=== PATIENT | male | born 1945 | race Caucasian/White ===

== ENCOUNTER 2019-06-08 10:42 | Observation (INO) | payer MEDICARE, BC ==
[2019-06-05 12:25] LABS: BASOPHILS # (AUTO) 0.1 X10'3 (0-0.2); BASOPHILS % (AUTO) 1.3 % (0-1); EOSINOPHILS # (AUTO) 0.1 X10'3 (0-0.9); EOSINOPHILS % (AUTO) 1.7 % (0-6); LYMPHOCYTES # (AUTO) 1.2 X10'3 (1.1-4.8); LYMPHOCYTES % (AUTO) 30.8 % (21-51); MEAN CORPUSCULAR HEMOGLOBIN 30.7 PG (27.0-31.0); MEAN CORPUSCULAR HGB CONC 33.8 g/dL (33.0-36.5); MEAN PLATELET VOLUME 7.6 FL (7.4-10.4); MONOCYTES # (AUTO) 0.4 X10'3 (0-0.9); MONOCYTES % (AUTO) 9.4 % (2-12); NEUTROPHILS # (AUTO) 2.3 X10'3 (1.8-7.7); NEUTROPHILS % (AUTO) 56.8 % (42-75); PRE OP HEMATOCRIT 41.7 % (42.0-52.0); PRE OP HEMOGLOBIN 14.1 g/dL (14.0-17.9); PRE OP PLATELET COUNT 205 X10'3 (140-440); RED BLOOD COUNT 4.58 X10'6 (4.70-6.10); RED CELL DISTRIBUTION WIDTH 13.1 % (11.5-14.5)
[2019-06-05 12:35] LABS: PRE OP INR 1.1 INR
[2019-06-05 12:37] LABS: ALBUMIN 3.7 G/DL (3.4-5.0); ALBUMIN/GLOBULIN RATIO 1.2 (1.1-1.5); ALKALINE PHOSPHATASE 69 IU/L (46-116); BLOOD UREA NITROGEN 17 MG/DL (7-18); BUN/CREATININE RATIO 18.7 (5.4-32.0); CALCIUM 8.9 MG/DL (8.5-10.1); CHLORIDE 108 MMOL/L (99-107); CREATININE 0.91 MG/DL (0.60-1.10); PRE OP ALT 33 U/L (30-65); PRE OP ANION GAP 1 (8-16); PRE OP AST 32 U/L (10-37); PRE OP BILIRUB, TOTAL 0.4 MG/DL (0.0-1.0); PRE OP GLUCOSE 99 MG/DL (70-104); PRE OP POTASSIUM 4.3 MMOL/L (3.4-5.1); PRE OP SODIUM 141 MMOL/L (135-145); TOTAL CARBON DIOXIDE 31.8 MMOL/L (24-32); TOTAL PROTEIN 6.8 G/DL (6.4-8.2); eGFR 82 ML/MIN
[~2019-06-08] VITALS: Ht 188 cm; Wt 88.5 kg
[2019-06-08] VITALS (19 sets, daily range): BP systolic 122–159; BP diastolic 61–85
[~2019-06-08 10:42] MED LIST: AMLO10TA PO; ASPI-611; ATOR40TA71 PO; LEVO200T8 PO; LOSA25TA96 PO; MULT-785 PO; OMEP40CA13 PO; cefazolin/dext.iso 2gm/100ml 100 ML IV ONE; famotidine 20mg tablet PO ONE; meperidine/PF 25mg/ml syringe IV PRN; morphine 2 MG/ML inj. syringe IV PRN; morphine 4 MG/ML inj SYRINge IV PRN; ondansetron/PF 4mg/2ml inj IV PRN; proCHLORperazine 10 MG/2 ml inj IV PRN; ringers solution, lacted 1,000 ML IV SCH
[2019-06-08] MEDS ORDERED: iohexol 300 MG/1 ML 10ml vial ONE (13:32)
[2019-06-08] MEDS ORDERED: neomy sulf/polymyxin B sulf. GU irrigation 1ml amp IR ONE (13:32)
[2019-06-08] MEDS ORDERED: fentaNYL/PF 50MCG/1 ML 2ML syringe ONE (13:40)
[2019-06-08] MEDS ORDERED: MIDAZolam 5mg/5ml vial ONE (13:40)
[2019-06-08] MEDS ORDERED: glycopyrrolate 0.2mg/ml inj ONE (15:32)
--- NOTE | 2019-06-08 15:45 | NUR ---
Received from OR via BED , accompanied by Anesthesiologist DR FRAGOSO and report given by Anesthesiolgist. PATIENT WAKING UP, DENIES PAIN, V/S WNL, NEUROVASCULAR CHECKLS INTACT, 20G PIV TO LUE, SCD ON, 3 WAY CONTINOUS BLADDER IRRIGATION WITH LIGHT CLEAR URINE NO CLOTS SEEN AT THIS TIME.
[2019-06-08] MEDS ORDERED: proCHLORperazine 10 MG/2 ml inj IV PRN (15:55)
[2019-06-08] MEDS ORDERED: mag hydrox/Alum hydrox/simeth 30ml oral suspension PO PRN (15:55)
[2019-06-08] MEDS ORDERED: zolpidem 5mg tablet PO PRN (15:55)
[2019-06-08] MEDS ORDERED: oxybutynin 5mg tablet PO PRN (15:55)
[2019-06-08] MEDS ORDERED: acetaminophen 325mg tablet PO PRN (15:55)
[2019-06-08] MEDS ORDERED: LIDOcaine 2% 10ml TOPICAL JELLY (Urojet) TP ONE (15:55)
[2019-06-08] MEDS ORDERED: HYDROcodone/acetaminophen 10/325mg tab PO PRN (15:55)
[2019-06-08] MEDS ORDERED: ondansetron/PF 4mg/2ml inj IV PRN (15:55)
[2019-06-08] MEDS: ceFAZolin inj. 1,000 MG in dextrose 5%-water 50ml 50 ML IV SCH (16:00)
--- NOTE | 2019-06-08 16:45 | NUR ---
PATIENT A&OX4, DENIES PAIN, V/S WNL, NEUROVASCULAR CHECKLS INTACT, 20G PIV TO LUE, SCD ON, 3 WAY CONTINOUS BLADDER IRRIGATION WITH LIGHT CLEAR URINE NO CLOTS SEEN AT THIS TIME. PATIENT TAKEN TO 349A WITH ALL BELONGINGS AND HOOKED UP TO MONITORS IN ROOM AND REPORT GIVEN TO TANK BUILDER AND ERECTOR WHO HAS TAKEN OVER PATIENT CARE.
--- NOTE | 2019-06-08 18:35 | NUR ---
Problems reprioritized. Patient report given, questions answered & plan of care reviewed with PAT RN.
--- NOTE | 2019-06-08 18:39 | NUR ---
PER DR PATTERSON DOSE OF ANCEF GIVEN IN OR. WILL NON ADMIN 1600 DOSE.
[2019-06-08] MEDS: potassium cl 20mEq in 1/2 NS 1,000 ML IV SCH ×2 (20:14→23:54)
[2019-06-08] MEDS: docusate sod 100mg capsule PO SCH (20:14)
[2019-06-09] VITALS: BP 142/82
[2019-06-09] MEDS: ceFAZolin inj. 1,000 MG in dextrose 5%-water 50ml 50 ML IV SCH ×2 (00:30→07:25)
[2019-06-09 04:30] VITALS: BP 141/75
[2019-06-09] MEDS: potassium cl 20mEq in 1/2 NS 1,000 ML IV SCH (05:18)
[2019-06-09 06:19] LABS: BASOPHILS % (AUTO) 0.6 % (0-1); EOSINOPHILS # (AUTO) 0.2 X10'3 (0-0.9); EOSINOPHILS % (AUTO) 2.5 % (0-6); HEMATOCRIT 40.8 % (42.0-52.0); LYMPHOCYTES # (AUTO) 1.3 X10'3 (1.1-4.8); LYMPHOCYTES % (AUTO) 18.5 % (21-51); MEAN CORPUSCULAR HGB CONC 34.4 g/dL (33.0-36.5); MEAN CORPUSCULAR VOLUME 90.1 FL (78-98); MEAN PLATELET VOLUME 7.8 FL (7.4-10.4); MONOCYTES # (AUTO) 0.5 X10'3 (0-0.9); MONOCYTES % (AUTO) 7.5 % (2-12); NEUTROPHILS # (AUTO) 4.8 X10'3 (1.8-7.7); NEUTROPHILS % (AUTO) 70.9 % (42-75); PLATELET COUNT 187 X10'3 (140-440); RED BLOOD COUNT 4.53 X10'6 (4.70-6.10); WHITE BLOOD COUNT 6.8 X10'3 (4.5-11.0)
[2019-06-09 06:24] LABS: ALBUMIN 3.2 G/DL (3.4-5.0); ANION GAP 3 (8-16); BLOOD UREA NITROGEN 8 MG/DL (7-18); BUN/CREATININE RATIO 9.9 (5.4-32.0); CALCIUM 8.8 MG/DL (8.5-10.1); CHLORIDE 108 MMOL/L (99-107); CREATININE 0.81 MG/DL (0.60-1.10); GLUCOSE 82 MG/DL (70-104); SODIUM 140 MMOL/L (135-145); TOTAL CARBON DIOXIDE 28.9 MMOL/L (24-32); eGFR > 90 ML/MIN
[2019-06-09] MEDS ORDERED: levoTHYROXINE 100mcg tablet PO SCH (07:00)
[2019-06-09 07:01] VITALS: BP 130/74
[2019-06-09] MEDS: docusate sod 100mg capsule PO SCH (07:25)
[2019-06-09] MEDS ORDERED: pantoprazole 40mg Tablet.DR PO SCH (07:30)
[2019-06-09] MEDS ORDERED: losartan 25mg tablet PO SCH (08:00)
[2019-06-09] MEDS ORDERED: amLODIPine 5mg tablet PO SCH (08:00)
[2019-06-09] MEDS ORDERED: non-formulary drug (Omeprazole (Prilosec) 1 CAP) PO SCH (08:00)
[2019-06-09] MEDS ORDERED: atorvastatin 20mg tablet PO SCH (08:00)
[2019-06-09] MEDS ORDERED: DOCU-148 PO (09:22)
--- NOTE | 2019-06-09 09:51 | NUR ---
PAUSED CBI PER MD ORDER
--- NOTE | 2019-06-09 13:43 | NUR ---
PT DISCHARGED IN STABLE CONDITION. LEFT FACILITY IN PRIVATE VEHICLE WITH . IV DC CANULA INTACT. ASHLEY CATH IN PLACE, EDUCATION GIVEN. FOLLOW UP INSTRUCTIONS GIVEN, ALL QUESTIONS ANSWERED. ALL BELONGINGS IN HAND. Addendum: 06/09/19 at 1344 by Alyse Morris RN Amended: Links added.
--- NOTE | 2019-06-13 12:48 | NUR ---
case management DC follow up: LM/VM post DC status, questions, concerns
== END 2019-06-09 11:49 | disposition home or self-care (01) ==
LOC: PAS IN 10:42 → INTOOBSV 10:42 → EDSTATUS 12:30 → SUR 3N 15:54
PROVIDERS: ADMIT Urology; ATTEND Urology
DX: N32.0 Bladder-neck obstruction (principal); N40.1 Benign prostatic hyperplasia with lower urinary tract symptoms; N21.0 Calculus in bladder; I25.10 Atherosclerotic heart disease of native coronary artery without angina pectoris; Z87.442 Personal history of urinary calculi; I51.9 Heart disease, unspecified; M19.90 Unspecified osteoarthritis, unspecified site; Z87.891 Personal history of nicotine dependence; Z79.899 Other long term (current) drug therapy
CPT/HCPCS: 36415; 52317; 52601; 80048; 80053; 82948; 85025; 85610; 85730; 86885; 86900; 86901; 96365; 96366; G0378; J0690; J2250; J3010; J7060; J7120; Q9967; 88300; 88305; A4355; A4402; A4615; A4618; J3480; J3490

== ENCOUNTER 2019-08-06 06:48 | Emergency (ER) | payer MEDICARE, BC ==
[~2019-08-06] VITALS: Ht 188 cm; Wt 91.8 kg
[~2019-08-06 06:48] MED LIST changes: -ASPI-611; +DOCU-148 PO; -MULT-785 PO; -cefazolin/dext.iso 2gm/100ml 100 ML IV ONE; -famotidine 20mg tablet PO ONE; -meperidine/PF 25mg/ml syringe IV PRN; -morphine 2 MG/ML inj. syringe IV PRN; -morphine 4 MG/ML inj SYRINge IV PRN; -ondansetron/PF 4mg/2ml inj IV PRN; -proCHLORperazine 10 MG/2 ml inj IV PRN; -ringers solution, lacted 1,000 ML IV SCH
[2019-08-06] MEDS ORDERED: LIDOcaine 2% 10ml TOPICAL JELLY (Urojet) MM ONE (07:35)
[2019-08-06] MEDS ORDERED: LIDOcaine 2% 10ml TOPICAL JELLY (Urojet) TP ONE (07:35)
[2019-08-06 07:50] LABS: CLARITY,URINE SLIGHTLY CLOUDY (Clear); COLOR,URINE STRAW (Yellow); GLUCOSE, URINE NEGATIVE (Neg); KETONES,URINE NEGATIVE (Neg); LEUKOCYTE ESTERASE ,URINE MODERATE (Neg); NITRITES, URINE NEGATIVE (Neg); OCCULT BLOOD,URINE TRACE-INTACT (Neg); PROTEIN,URINE NEGATIVE (Neg); UROBILINOGEN,URINE 0.2 E.U/dL (0.2-1.0)
[2019-08-06 07:58] LABS: UA COLLECTION TYPE VOIDED
[2019-08-06 07:59] LABS: RBC,URINE 0-2 /HPF (0-2); WBC,URINE 30-50 /HPF (0-4)
[2019-08-06 08:00] LABS: BACTERIA,URINE FEW /HPF (Neg); MUCUS STRANDS NONE SEEN /LPF (Neg); SQUAMOUS EPITHELIAL CELL,UR FEW /LPF (FEW)
[2019-08-06] MEDS ORDERED: cephalexin 250mg capsule PO ONE (08:05)
[2019-08-06] MEDS ORDERED: FLO0.4C PO (08:18)
[2019-08-06] MEDS ORDERED: CEPH500C5 PO (08:18)
[2019-08-06 08:46] VITALS: BP 148/84
== END 2019-08-06 08:47 | disposition home or self-care (01) ==
LOC: ER 06:49
DX: N39.0 Urinary tract infection, site not specified (principal); R33.9 Retention of urine, unspecified; I25.10 Atherosclerotic heart disease of native coronary artery without angina pectoris; Z72.89 Other problems related to lifestyle; Z98.61 Coronary angioplasty status; Z79.899 Other long term (current) drug therapy
CPT/HCPCS: 51702; 81001; 99284

== ENCOUNTER 2020-03-07 07:00 | Day surgery (SDC) | payer MEDICARE, BC ==
[2020-03-04 12:07] LABS: BASOPHILS % (AUTO) 0.9 % (0-1); EOSINOPHILS # (AUTO) 0.1 X10'3 (0-0.9); EOSINOPHILS % (AUTO) 2.3 % (0-6); LYMPHOCYTES # (AUTO) 1.6 X10'3 (1.1-4.8); LYMPHOCYTES % (AUTO) 31.7 % (21-51); MEAN CORPUSCULAR HEMOGLOBIN 31.5 PG (27.0-31.0); MEAN CORPUSCULAR HGB CONC 33.6 g/dL (33.0-36.5); MEAN CORPUSCULAR VOLUME 93.6 FL (78-98); MEAN PLATELET VOLUME 7.3 FL (7.4-10.4); MONOCYTES # (AUTO) 0.5 X10'3 (0-0.9); MONOCYTES % (AUTO) 9.2 % (2-12); NEUTROPHILS # (AUTO) 2.9 X10'3 (1.8-7.7); NEUTROPHILS % (AUTO) 55.9 % (42-75); PRE OP HEMATOCRIT 43.7 % (42.0-52.0); PRE OP HEMOGLOBIN 14.7 g/dL (14.0-17.9); PRE OP PLATELET COUNT 217 X10'3 (140-440); RED BLOOD COUNT 4.67 X10'6 (4.70-6.10); RED CELL DISTRIBUTION WIDTH 12.9 % (11.5-14.5)
[2020-03-04 12:31] LABS: ALBUMIN 3.8 G/DL (3.4-5.0); ALBUMIN/GLOBULIN RATIO 1.1 (1.1-1.5); ALKALINE PHOSPHATASE 67 IU/L (46-116); BLOOD UREA NITROGEN 18 MG/DL (7-18); BUN/CREATININE RATIO 20.2 (5.4-32.0); CALCIUM 8.9 MG/DL (8.5-10.1); CHLORIDE 107 MMOL/L (99-107); CREATININE 0.89 MG/DL (0.60-1.10); PRE OP ALT 34 U/L (30-65); PRE OP ANION GAP 5 (8-16); PRE OP AST 27 U/L (10-37); PRE OP BILIRUB, TOTAL 0.4 MG/DL (0.0-1.0); PRE OP GLUCOSE 93 MG/DL (70-104); PRE OP POTASSIUM 4.4 MMOL/L (3.4-5.1); PRE OP SODIUM 142 MMOL/L (135-145); TOTAL CARBON DIOXIDE 30.1 MMOL/L (24-32); TOTAL PROTEIN 7.3 G/DL (6.4-8.2); eGFR 84 ML/MIN
[~2020-03-07] VITALS: Ht 188 cm; Wt 88.5 kg
[2020-03-07] VITALS (12 sets, daily range): BP systolic 145–162; BP diastolic 82–94
[~2020-03-07 07:00] MED LIST changes: +ASPI81TA52 PO; -DOCU-148 PO; +LEVO150T PO; -LEVO200T8 PO; -OMEP40CA13 PO; +ceFAZolin 2gm in dextrose, iso 50 ML IV ONE; +famotidine 20mg tablet PO ONE; +ringers solution, lacted 1,000 ML IV SCH
[2020-03-07] MEDS ORDERED: ringers solution, lacted 1,000 ML IV SCH (08:55)
[2020-03-07] MEDS ORDERED: morphine 4 MG/ML inj SYRINge IV PRN (08:55)
[2020-03-07] MEDS ORDERED: morphine 2 MG/ML inj. syringe IV PRN (08:55)
[2020-03-07] MEDS ORDERED: meperidine/PF 25mg/ml syringe IV PRN ×3 (08:55)
[2020-03-07] MEDS ORDERED: proCHLORperazine 10 MG/2 ml inj IV PRN (08:55)
[2020-03-07] MEDS ORDERED: ondansetron/PF 4mg/2ml inj IV PRN (08:55)
[2020-03-07] MEDS ORDERED: sevoflurane 250ml liquid IH ONE (09:03)
[2020-03-07] MEDS ORDERED: dexamethasone sod phosphate 10mg/ml inj ONE (09:03)
[2020-03-07] MEDS ORDERED: fentaNYL/PF 50MCG/1 ML 2ML syringe ONE (09:16)
[2020-03-07] MEDS ORDERED: midazolam 2 mg/2 ml injection ONE (09:16)
[2020-03-07] MEDS ORDERED: propofol inj 20 ML IV ONE (09:17)
[2020-03-07] MEDS ORDERED: LIDOcaine 1%/PF 5ML 10 MG/ML VIAL ONE (09:17)
[2020-03-07] MEDS ORDERED: ondansetron/PF 4mg/2ml inj ONE (10:19)
--- NOTE | 2020-03-07 10:38 | NUR ---
Received from OR via XANDER , accompanied by Anesthesiologist SIMEON and report given by Anesthesiolgist. PATIENT WITH 20G PIV IN RIGHT UE RUNNING LR AT 100. DENIES PAIN. NO DRESSIGS PRESENT. 10L O2 MASK ON WITH 100% SATURATIONS. PATIENT WITH 10L MASK ON WITH 100% SATURATIONS. AHSLEY CATHETER PRESENT WITH CLEAR YELLOW URINE. DENIES PAIN. Addendum: 03/07/20 at 1049 by Lenny Albarran RN, RN Amended: Links added.
--- NOTE | 2020-03-07 11:58 | NUR ---
D/C FROM PACU PATIENT AND FAMILY AND THEY HAVE VERBALIZED UNDERSTANDING, OPPORTUNITY TO ASK QUESTIONS GIVEN AND PATIENT COMFORTABLE WITH DC. IV TAKEN OUT WITHOUT COMPLICATION. PATIENT HAS MET ALL DC CRITERIA FOR DC HOME. I HAVE REVIEWED D/C INSTRUCTIONS WITH OUT VIA WHEELCHAIR WHERE PATIENT WAS TAKEN HOME WITH ALL BELONGINGS. FAMILY GAVE PATIENT TRANSPORT HOME. PATIENT GIVEN WRITTEN AND DEMONSTRATION ON HOW TO TAKE OUT ASHLEY CATHETER. ALL QUESTIONS ANSWERED. 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 VSS. LEG STRAP DONNED TO ASHLEY CATHETER. URINE EMPTIED PRIOR TO LEAVING. Addendum: 03/07/20 at 1210 by Lenny Albarran RN, RN Amended: Links added.
== END 2020-03-07 11:58 | disposition home or self-care (01) ==
LOC: PAS 07:00
PROVIDERS: ATTEND Urology
DX: N21.0 Calculus in bladder (principal); N21.1 Calculus in urethra; N30.20 Other chronic cystitis without hematuria; I25.10 Atherosclerotic heart disease of native coronary artery without angina pectoris; I10 Essential (primary) hypertension; M19.90 Unspecified osteoarthritis, unspecified site; N40.0 Benign prostatic hyperplasia without lower urinary tract symptoms; Z20.828 Contact with and (suspected) exposure to other viral communicable diseases; Z79.899 Other long term (current) drug therapy; Z98.890 Other specified postprocedural states; Z87.891 Personal history of nicotine dependence; Z95.5 Presence of coronary angioplasty implant and graft; Z79.82 Long term (current) use of aspirin; Z98.41 Cataract extraction status, right eye; Z98.42 Cataract extraction status, left eye; Z87.440 Personal history of urinary (tract) infections
CPT/HCPCS: 36415; 52317; 52353; 52500; 80053; 82948; 84443; 85025; 87635; 93005; J1100; J2250; J2405; J2704; J3010; J7120; 88300; 88305; A4338; A4355; A4357; A4615; A4618; A7000

== ENCOUNTER 2020-06-06 10:12 | Day surgery (SDC) | payer MEDICARE, BC ==
[2020-05-30 15:40] LABS: BASOPHILS % (AUTO) 0.7 % (0-1); EOSINOPHILS # (AUTO) 0.1 X10'3 (0-0.9); LYMPHOCYTES # (AUTO) 1.7 X10'3 (1.1-4.8); LYMPHOCYTES % (AUTO) 31.2 % (21-51); MEAN CORPUSCULAR HEMOGLOBIN 30.9 PG (27.0-31.0); MEAN CORPUSCULAR HGB CONC 33.7 g/dL (33.0-36.5); MEAN CORPUSCULAR VOLUME 91.6 FL (78-98); MEAN PLATELET VOLUME 7.4 FL (7.4-10.4); MONOCYTES # (AUTO) 0.5 X10'3 (0-0.9); NEUTROPHILS # (AUTO) 3.1 X10'3 (1.8-7.7); NEUTROPHILS % (AUTO) 57.1 % (42-75); PRE OP HEMATOCRIT 40.8 % (42.0-52.0); PRE OP HEMOGLOBIN 13.8 g/dL (14.0-17.9); PRE OP PLATELET COUNT 214 X10'3 (140-440); RED BLOOD COUNT 4.45 X10'6 (4.70-6.10); RED CELL DISTRIBUTION WIDTH 13.4 % (11.5-14.5)
[2020-05-30 15:54] LABS: ALBUMIN 3.7 G/DL (3.4-5.0); ALBUMIN/GLOBULIN RATIO 1.1 (1.1-1.5); ALKALINE PHOSPHATASE 68 IU/L (46-116); BLOOD UREA NITROGEN 12 MG/DL (7-18); BUN/CREATININE RATIO 11.9 (5.4-32.0); CALCIUM 9.6 MG/DL (8.5-10.1); CHLORIDE 105 MMOL/L (99-107); CREATININE 1.01 MG/DL (0.60-1.10); PRE OP ALT 45 U/L (30-65); PRE OP ANION GAP 8 (8-16); PRE OP AST 47 U/L (10-37); PRE OP BILIRUB, TOTAL 0.4 MG/DL (0.0-1.0); PRE OP GLUCOSE 95 MG/DL (70-104); PRE OP POTASSIUM 4.4 MMOL/L (3.4-5.1); PRE OP SODIUM 142 MMOL/L (135-145); TOTAL CARBON DIOXIDE 29.4 MMOL/L (24-32); TOTAL PROTEIN 7.1 G/DL (6.4-8.2); eGFR 72 ML/MIN
[~2020-06-06] VITALS: Ht 188 cm; Wt 93.2 kg
[2020-06-06] VITALS (10 sets, daily range): BP systolic 121–167; BP diastolic 64–104
[~2020-06-06 10:12] MED LIST changes: +OMEP40CA13 PO
[2020-06-06] MEDS ORDERED: sevoflurane 250ml liquid IH ONE (12:46)
[2020-06-06] MEDS ORDERED: fentaNYL/PF 50MCG/1 ML 2ML syringe ONE (12:55)
[2020-06-06] MEDS ORDERED: acetaminophen 1,000mg/100ml IV 100 ML IV PRN (13:10)
[2020-06-06] MEDS ORDERED: ondansetron/PF 4mg/2ml inj IV PRN (13:10)
[2020-06-06] MEDS ORDERED: proCHLORperazine 10 MG/2 ml inj IV PRN (13:10)
[2020-06-06] MEDS ORDERED: hydrALAZINE 20mg/ml inj. IV PRN (13:10)
[2020-06-06] MEDS ORDERED: labetalol 20mg/4ml (5mg/ml) syringe IV PRN (13:10)
[2020-06-06] MEDS ORDERED: morphine 4 MG/ML inj SYRINge IV PRN (13:10)
[2020-06-06] MEDS ORDERED: morphine 2 MG/ML inj. syringe IV PRN (13:10)
[2020-06-06] MEDS ORDERED: ringers solution, lacted 1,000 ML IV SCH (13:10)
[2020-06-06] MEDS ORDERED: meperidine/PF 25mg/ml syringe IV PRN ×3 (13:10)
[2020-06-06] MEDS ORDERED: dexamethasone sod phosphate 4mg/ml inj. ONE (13:39)
[2020-06-06] MEDS ORDERED: propofol inj 20 ML IV ONE (13:39)
[2020-06-06] MEDS ORDERED: ondansetron/PF 4mg/2ml inj ONE (13:39)
[2020-06-06] MEDS ORDERED: LIDOcaine 2% (20mg/ml) 5ml vial ONE (13:39)
[2020-06-06] MEDS ORDERED: midazolam 1 mg/ML 2ml injection ONE (13:39)
--- NOTE | 2020-06-06 13:48 | NUR ---
Received from OR via XANDER , accompanied by Anesthesiologist ERINN and report given by Anesthesiolgist. PATIENT WITH 20G PIV IN RIGHT UE RUNNING LR AT 100. DENIES PAIN. VSS. 10L MASK ON WITH 100% SATURATIONS. Addendum: 06/06/20 at 1400 by Lenny Albarran RN, RN Amended: Links added.
--- NOTE | 2020-06-06 14:51 | NUR ---
Received from OR via XANDER , accompanied by Anesthesiologist ERINN and report given by Anesthesiolgist. PATIENT WITH 20GP IV IN RIGHT UE RUNNING LR AT 100. DENIES PAIN AT THIS TIME. VSS. Addendum: 06/06/20 at 1501 by Lenny Albarran RN RN Amended: Links added.
--- NOTE | 2020-06-06 15:18 | NUR ---
AWAKE AND ORIENTED. VITALS STABLE. DINORA PAIN. WAS ABLE TO VOID WITHOUT DIFFICULTY. HOME WITH HIS AT TIS TIME.
== END 2020-06-06 15:18 | disposition home or self-care (01) ==
LOC: PAS 10:12
PROVIDERS: ATTEND Urology
DX: N21.1 Calculus in urethra (principal); K21.9 Gastro-esophageal reflux disease without esophagitis; I10 Essential (primary) hypertension; Z79.82 Long term (current) use of aspirin; Z79.899 Other long term (current) drug therapy; Z98.890 Other specified postprocedural states; I25.10 Atherosclerotic heart disease of native coronary artery without angina pectoris; M19.90 Unspecified osteoarthritis, unspecified site; F17.210 Nicotine dependence, cigarettes, uncomplicated; Z95.5 Presence of coronary angioplasty implant and graft; Z20.822 Contact with and (suspected) exposure to COVID-19
CPT/HCPCS: 36415; 52310; 80053; 82948; 85025; 87635; J1100; J2001; J2250; J2405; J2704; J3010; A4618; J7120